=== PATIENT | female | born 1995 | race Two or more races ===

== ENCOUNTER 2017-02-03 02:20 | Emergency (ER) | payer SELFPAY ==
[~2017-02-03] VITALS: Ht 157.5 cm; Wt 56.7 kg
[2017-02-03 02:33] VITALS: BP 123/83
== END 2017-02-03 03:55 | disposition left against medical advice (07) ==
LOC: ER 02:29
DX: R10.9 Unspecified abdominal pain (principal); Z53.21 Procedure and treatment not carried out due to patient leaving prior to being seen by health care provider
CPT/HCPCS: 81025